=== PATIENT | female | born 1980 | race Caucasian/White ===

== ENCOUNTER 2019-01-15 17:24 | Outpatient (CLI) | payer OTHER, SELFPAY ==
[2019-01-15 17:48] VITALS: BMI 53.8
[2019-01-15 18:50] LABS: Mean Corp Hgb Conc 32.4 g/dL (32-36); Mean Corpuscular Hgb 27.3 pg (27.0-32.0); Mean Corpuscular Volume 84.3 fL (81-99); Mean Platelet Vol. 11.1 fl (6.2-12.0); Platelet Count 277 K/mm3 (150-450); RBC Distribution Width SD 51.8 fl (35.1-43.9); Red Blood Count 4.39 M/mm3 (4.2-5.4); White Blood Count 9.5 K/mm3 (4.4-11.0)
[2019-01-15 18:55] LABS: International Normalized Ratio 1.1; Partial Thromboplast Time 29.8 Seconds (24.1-36.2); Prothrombin Time (Protime)PT. 13.5 SECONDS (11.7-14.9)
[2019-01-15 19:02] LABS: Protein, Urine (Random) 7.6 mg/dL (<11.9); Protein:Creat Ratio 306 mg/g CRE (0-200)
[2019-01-15 19:10] LABS: AST(SGOT) 15 U/L (15-37); Alanine Aminotransfer ALT/SGPT 16 U/L (13-56); Creatinine, Serum 0.54 mg/dL (0.55-1.02); EST Glomerular Filtration Rate 135 mL/min (>60); Est Glom Filt Rate - Afr Amer 163 mL/min (>60); Estimated Creatinine Clearance 123.17 ml/min; Uric Acid 4.9 mg/dL (2.6-6.0)
--- NOTE | 2019-01-15 20:13 | OB.TRI.HP_ITS ---
History of Present Illness Date of Service: 01/15/19 Was patient seen by the physician?: Yes Reason For Visit: PRE-E Date of Service: 01/15/19 Final KYLE: 02/06/19 Final KYLE Source: US <20 weeks Gestational age: 36 Weeks and 6 Days History of Present Illness: 38-year-old female presents from the office today with increased blood pressures. They were in the 140s over 80s to 90s range in the office. She denies any headache or visual changes. She denies any epigastric pain. She is had good movement. She denies any contractions, vaginal bleeding or leaking of fluid. Allergies amoxicillin [Amoxicillin] Allergy (Severe, Verified 11/01/14 00:49) Unknown Quinolones Allergy (Severe, Verified 11/01/14 00:49) Unknown SEASONAL (ENVIRONMENT) Allergy (Mild, Uncoded 11/01/14 00:49) Unknown Laboratory Studies: Laboratory Tests 01/15/19 01/15/19 01/15/19 Range/Units 18:15 18:15 18:15 WBC (4.4-11.0) K/mm3 RBC (4.2-5.4) M/mm3 Hgb (12.0-15.0) g/dL Hct (37-47) % MCV (81-99) fL MCH (27.0-32.0) pg MCHC (32-36) g/dL RDW Std Deviation (35.1-43.9) fl RDW Coeff of Sherlyn (11.6-14.6) % Plt Count (150-450) K/mm3 MPV (6.2-12.0) fl PT 13.5 (11.7-14.9) SECONDS INR 1.1 APTT 29.8 (24.1-36.2) Seconds Creatinine 0.54 L (0.55-1.02) mg/dL Estim Creat Clear Calc 123.17 ml/min Est GFR (MDRD) Af Amer 163 (>60) mL/min Est GFR (MDRD) Non-Af 135 (>60) mL/min Uric Acid 4.9 (2.6-6.0) mg/dL AST 15 (15-37) U/L ALT 16 (13-56) U/L U Random Total Protein 7.6 (<11.9) mg/dL Urine Creatinine 24.80 (NO RANGE EST.) mg/dL Protein/Creatinin Ratio 306 H (0-200) mg/g CRE 01/15/19 Range/Units 18:15 WBC 9.5 (4.4-11.0) K/mm3 RBC 4.39 (4.2-5.4) M/mm3 Hgb 12.0 (12.0-15.0) g/dL Hct 37.0 (37-47) % MCV 84.3 (81-99) fL MCH 27.3 (27.0-32.0) pg MCHC 32.4 (32-36) g/dL RDW Std Deviation 51.8 H (35.1-43.9) fl RDW Coeff of Sherlyn 17.0 H (11.6-14.6) % Plt Count 277 (150-450) K/mm3 MPV 11.1 (6.2-12.0) fl PT (11.7-14.9) SECONDS INR APTT (24.1-36.2) Seconds Creatinine (0.55-1.02) mg/dL Estim Creat Clear Calc ml/min Est GFR (MDRD) Af Amer (>60) mL/min Est GFR (MDRD) Non-Af (>60) mL/min Uric Acid (2.6-6.0) mg/dL AST (15-37) U/L ALT (13-56) U/L U Random Total Protein (<11.9) mg/dL Urine Creatinine (NO RANGE EST.) mg/dL Protein/Creatinin Ratio (0-200) mg/g CRE Physical Exam General: Alert, Cooperative, No apparent distress Abdomen: Soft, Non-Distended, Gravid Extremities:: Deep tendon reflexes - 2+, Other - 2+edema Neurological: Negative for: Clonus NST - FHR Rate Baby A Baseline: normal Variability:: Moderate Accelerations:: 15 x 15 Decelerations:: None NST Reactive:: Yes FHR Category:: Category I Uterine Activity:: qiet Impression/Plan 38-year-old high risk primigravida with morbid obesity and BMI 53 presents with mildly increased blood pressures from the office. First couple of blood pressures were elevated but patient was anxious, also we are using a cuff that does not really fit properly on her arm. Because of the patient's body habitus and shape of her arm, we had difficulty finding an adequate blood pressure cuff. We ended up having to check blood pressures on her wrist. Blood pressures were then in the 130s over 80s range. Labs were all normal. No symptoms of preeclampsia with severe features. Urine protein ratio was minimally elevated at 306. I discussed with the patient risk benefits and alternatives to induction of labor versus expectant management. Patient would like to be discharged home tonight if it is clinically reasonable. At this point, patient can monitor her blood pressures at home and call us if they are persistently elevated. Instructed her to call if systolics are greater than 140 or diastolic s are greater than 90. In addition, she should call if any symptoms of severe preeclampsia. Will obtain a formal 24-hour urine. If this is normal, continue expectant management and follow-up closely. If the 24-hour urine is elevated in the preeclampsia range, I discussed with her I would recommend immediate induction. Patient's questions were answered to her satisfaction, she is comfortable with this plan.
[2019-01-16 21:15] LABS: 24 Hour Urine Protein 293.4 mg/24HR (<150 MG/24HR); 24HR. UA Prot. Total Volume 2425 mL; Urine Protein (24 Hour) 12.1 mg/dL (<11.9)
== END 2019-01-15 20:25 | disposition home or self-care (01) ==
LOC: WPOUT 17:24 → WP 17:46
PROVIDERS: Family Provider Family Medicine Sports Medicine; PCP Family Medicine Sports Medicine; Referring Provider Obstetrics & Gynecology; Visit Provider Obstetrics & Gynecology
DX: O26.893 Other specified pregnancy related conditions, third trimester (principal); R03.0 Elevated blood-pressure reading, without diagnosis of hypertension; O99.213 Obesity complicating pregnancy, third trimester; E66.01 Morbid (severe) obesity due to excess calories; Z3A.36 36 weeks gestation of pregnancy
CPT/HCPCS: 59025; 59050; 82565; 82570; 84156; 84450; 84460; 84550; 85027; 85610; 85730; 99218; G0378

== ENCOUNTER 2019-01-21 09:50 | Inpatient (IN) | payer OTHER, SELFPAY ==
[2019-01-21] VITALS (14 sets, daily range): BP systolic 127–156; BP diastolic 67–95; PULSE 85–105; RESP 16–22; TEMP 36.2–37.2; O2SAT 90–98; BMI 54.1
--- NOTE | 2019-01-21 10:19 | HP.PCM_ITS ---
History and Physical Date of Admission: 01/21/19 Pre-Op History and Physical ? HPI: The patient is a 38 year old female presenting for pre-operative visit. She is scheduled for?, for?suspected LGA fetus, unengaged head at term, unfavorable cervix, gestational hypertension on?01/21/19. ??Procedure discussed along with risks, benefits and complications. ?Other alternatives discussed for management. Consent form signed??Yes.? PAST?MEDICAL?HISTORY PAST MEDICAL HISTORY Diagnosis Date ? Hypothyroid ? ? IBS (irritable bowel syndrome) ? ? Infertility, female ? ? PCOS (polycystic ovarian syndrome) ? ? Pre-diabetes ? ? diet controled ? Testing for genetic disease carrier status ? ? On 01/09/2017 [employer] screen tested 4 conditions and no disease causing mutations were detected. (Fundamental panel,Ia-rlretvmba-bnttpmh hemoglobinopathy with Fragile X Syndrome) ? ? PAST?SURGICAL?HISTORY PAST SURGICAL HISTORY Procedure Laterality Date ? HIP SURGERY HX Bilateral 2013 ? REMOVE TONSILS/ADENOIDS,12+ Y/O ? 2007 ? ? CURRENT?MEDICATIONS Current Outpatient Medications Medication Sig Dispense Refill ? SYNTHROID 75 mcg tablet take 1 tablet by mouth once daily 30 tablet 2 ? ferrous sulfate (IRON ORAL) Take by mouth. ? ? ? PNV Combo No.47-Iron-FA #1-DHA (PNV-DHA) 27 mg iron-1 mg -300 mg cap Take 1 tablet by mouth once daily. 30 capsule 5 ? NESTABS ONE 38-1-225 mg cap ? acetaminophen (TYLENOL) 500 mg tablet Take 500 mg by mouth. ? ? ? BABY ASPIRIN ORAL Take by mouth. ? ? ? No current facility-administered medications for this visit.? ? ALLERGIES:?Amoxicillin; Quinolones; Seasonal Allergies ? PERSONAL HISTORY:? 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 ?Employer: [employer] ??Social Needs ?Financial resource strain: Not on file ?Food insecurity: ?Worry: Not on file ?Inability: Not on file ?Transportation needs: ?Medical: Not on file ?Non-medical: Not on file ??Tobacco Use ?Smoking status: Never Smoker ?Smokeless tobacco: Never Used ??Substance and Sexual Activity ?Alcohol use: Not Currently ?Drug use: Never ?Sexual activity: Yes ?Partners: Male ??Lifestyle ?Physical activity: ?Days per week: Not on file ?Minutes per session: Not on file ?Stress: Not on file ??Relationships ?Social connections: ?Talks on phone: Not on file ?Gets together: Not on file ?Attends hinduism service: Not on file ?Active member of club or organization: Not on file ?Attends meetings of clubs or organizations: Not on file ?Relationship status: Not on file ?Intimate partner violence: ?Fear of current or ex partner: Not on file ?Emotionally abused: Not on file ?Physically abused: Not on file ?Forced sexual activity: Not on file ??Other Topics ?Concerns: ?Not on file ??Social History Narrative ?Not on file ? FAMILY HISTORY:? FAMILY?HISTORY FAMILY HISTORY Problem Relation Age of Onset ? Thyroid Mother ? ? Hypertension Mother ? ? Lipids Mother ? ? Hypertension Brother ? ? REVIEW OF SYMPTOMS: GENERAL: denies fevers or chills ENDOCRINOLOGY: has not been on steroids Cardiology : denies palpitations or chest pain Respiratory: denies SOB or cough Hematology: denies history of prolonged bleeding or easy bruising or VTE Allergy: Denies history of personal or family history of allergy to anesthesia ? ? PHYSICAL EXAMINATION: ? VITALS:?Blood pressure 145/92, weight (!) 316 lb (143.3 kg). ? GENERAL:??The patient is well nourished, well hydrated in no acute distress. ?, The patient is oriented to time, place, and person. NECK:?Supple. No lynphadenopathy, normal thyroid, no thyromegaly. LUNGS:?Clear to auscultation bilaterally. no wheezes, rhonchi or rales HEART:?Regular rate and rhythm, Normal heart sounds and No murmurs or gallops abd- soft, nontender, gravid ? ? IMPRESSION:?37w5 d IUP, gestational hypertension,?unengaged head at term, unfavorable cervix, advanced maternal age, maternal obesity ? PLAN:???The risks/benefits/alternatives and personal involved for the planned? delivery?were reviewed with the patient. Her questions were answered to her satisfaction and she desires to proceed. ?Consent was signed. ?I reviewed with her postop instructions and expectations. this history and physical was completed in my office on 01/20/2019. ?
[2019-01-21] MEDS: Lactated Ringers 1,000 ML 999 ML IV (10:40)
[2019-01-21 11:03] LABS: Absolute Lymphocyte Count 1.87 X10^3/uL (0.83-4.51); Absolute Neutrophil Count 6.1 X10^3/uL (2.0-7.7); Basophil# 0.04 X10^3/uL; Basophil% 0.5 % (0-1); Eosinophil# 0.13 X10^3/uL; Eosinophils% 1.5 % (0-5); Hematocrit 35.6 % (37-47); Hemoglobin 11.5 g/dL (12.0-15.0); Lymphocyte # 1.87 X10^3/ul (4.0); Lymphocyte % 21.3 % (19-41); Mean Corp Hgb Conc 32.3 g/dL (32-36); Mean Corpuscular Hgb 27.3 pg (27.0-32.0); Mean Corpuscular Volume 84.6 fL (81-99); Mean Platelet Vol. 10.9 fl (6.2-12.0); Monocyte# 0.53 X10^3/uL; NRBC Flagged by Analyzer 0 % (0-5); Neutrophil # 6.13 X10^3/uL (2.7-7.7); Neutrophil % 69.9 % (47-70); Platelet Count 240 K/mm3 (150-450); RBC Distribution Width CV 16.8 % (11.6-14.6); RBC Distribution Width SD 51.4 fl (35.1-43.9); Red Blood Count 4.21 M/mm3 (4.2-5.4); White Blood Count 8.8 K/mm3 (4.4-11.0)
[2019-01-21] MEDS: Sodium Citrate/Citric Acid 30 ML UDC PO (11:30)
[2019-01-21] MEDS: Lactated Ringers 1,000 ML 150 ML IV (11:30)
--- NOTE | 2019-01-21 13:15 | PCM.OPRPT ---
Delivery Classification: Scheduled Final KYLE: 02/06/19 Gestational age: 37 Weeks and 5 Days aquaculture farmer: Tania Winn Type of Anesthesia:: Spinal Implants Used: none Date of Procedure: 01/21/19 Pre-Operative Diagnosis: 37 week high risk nulliparrous patient, maternal obesity w/ BMI 54, Unfavorable cervix, high head at time, gestational hypertension, Post-Operative Diagnosis: same Indications: see preop diagnosis Indications for : - - same Description of Procedure: The patient was taken to the operating room. She was prepped and draped in the dorsal supine position with a leftward tilt. A Pfannenstiel skin incision was made approximately 2 cm above the symphysis pubis and carried through to underlying layer fascia with the scalpel. The fascia was incised incised in the midline and extended laterally with the Snell scissors. The fascia was dissected off the rectus muscles with blunt and sharp dissection. The rectus muscles were in the midline and the peritoneum was entered bluntly. The peritoneal incision was stretched and the bladder blade was placed. The uterine incision was made in a low transverse fashion with the scalpel and extended superiorly and inferiorly with blunt dissection. The amniotic membranes were ruptured bluntly and clear amniotic fluid returned. The infant's head was brought to the incision in the flexed position, however I was unable to deliver it with fundal pressure alone. The vacuum was obtained and the vacuum was placed on the scalp and 550 mmHg of pressure was created. I pulled with 3 pulls, 2 pop offs with fundal pressure in the standard fashion. The head delivered without difficulty and the vacuum was removed. The remainder the infant was delivered with gentle fundal pressure and gentle traction in standard fashion. The cord was clamped and cut as the was stimulated. . The was handed off to the waiting nursing staff. A small section of cord was clamped and cut for cord gases. Cord blood was then collected in the standard fashion per the patient request in the cord blood collection kit. Was then handed off. The placenta was delivered with fundal massage and gentle traction in the standard fashion. The uterus was left in the peritoneal cavity and cleared of all clots and debris. The cervix was dilated with a ring forcep. The uterine incision was closed with #1 Vicryl in a running locked fashion. A second layer of the same suture was used in an imbricating fashion. Several [id number] sutures were needed in some bleeding sinuses to obtain hemostasis. The incision was examined and was found to be hemostatic. Nicolasa was placed over the incision and gentle pressure was held for 2 minutes, and then the incision was hemostatic. The rectus muscles were examined and any bleeding was Bovie cauterized. Nicolasa was placed over the rectus muscles, and also in the subcutaneous tissue was closure proceeded. The parietal peritoneum and rectus muscles were closed en bloc with an 0 Vicryl running suture. The surgical teams outer gloves were then changed. The rectus fascia was examined and any bleeding was Bovie cauterized and the rectus fascia was closed with looped #1 PDS suture in a running standard fashion. The subcutaneous tissue was examining and any bleeding was Bovie cauterized. The subcutaneous tissue was reapproximated with 3-0 Vicryl suture in 3 layers. The skin was closed in a subcuticular fashion by the PROFESSIONAL BENEFITS SALES CONSULTANT with me present in the labor and delivery suite. I performed the remainder of the procedure with assistance. All sponge, lap, and needle counts were correct. The patient was taken to her room for recovery in a stable condition. Amniotic Fluid Description: Clear Placenta Disposition: to tissue bank for donation Drain: Pineda to straight drain Fluids Replaced: 1000 Cord Entanglement: None Cord Vessel Description: 3 Vessels Esitmated Blood Loss (ml): 1200 Infant Gender: Male Delayed cord clamping: No Antibiotic Given: Ancef 3 grams IV x1 Complications: None - Admit VTE Documentation VTE Present on Admission: No VTE Mechan Device Prophylaxis: SCD's VTE Pharm Prophylaxis ordered?: Yes
[2019-01-21] MEDS: Oxytocin 30 units/NS 500 ml 30 UNITS/500 ML IV.SOLN 167 UNITS IV (13:35)
--- NOTE | 2019-01-21 16:00 | NURSING ---
Report given to Farheen Jerome RN. She will assume care of patient at this time.
[2019-01-21] MEDS: Lactated Ringers 1,000 ML 100 ML IV (17:14)
[2019-01-21] MEDS: Ketorolac 30 MG/ML Syringe IV (18:11)
[2019-01-21] MEDS: Cefazolin 1 GM/50 ML BAG IV (20:14)
[2019-01-21] MEDS: Senna/Docusate Sodium 1 Tablet PO (23:23)
[2019-01-22] MEDS: Ketorolac 30 MG/ML Syringe IV ×4 (00:28→18:44)
[2019-01-22 00:30] VITALS: PULSE 108; RESP 18; TEMP 37.2
--- NOTE | 2019-01-22 01:07 | NURSING ---
20:00 Incentive spirometer provided to patient. Education given on use
[2019-01-22] MEDS: Lactated Ringers 1,000 ML 100 ML IV (03:38)
[2019-01-22] MEDS: Cefazolin 1 GM/50 ML BAG IV (04:01)
[2019-01-22 04:06] VITALS: BP 152/77; PULSE 100; RESP 20; TEMP 37
--- NOTE | 2019-01-22 04:51 | NURSING ---
New drainage noted on silver mepilex at this assessment. Charge Nurse called to room to assess. New drainage circled and will continue to observe.
[2019-01-22] MEDS: Enoxaparin 40 MG/0.4 ML Syringe SC (06:19)
[2019-01-22] MEDS: Levothyroxine 75 MCG Tablet PO (06:22)
[2019-01-22 06:49] LABS: Hematocrit 29.2 % (37-47); Hemoglobin 9.5 g/dL (12.0-15.0); Mean Corp Hgb Conc 32.5 g/dL (32-36); Mean Corpuscular Hgb 27.5 pg (27.0-32.0); Mean Corpuscular Volume 84.6 fL (81-99); Mean Platelet Vol. 10.8 fl (6.2-12.0); Platelet Count 215 K/mm3 (150-450); RBC Distribution Width SD 51.9 fl (35.1-43.9); Red Blood Count 3.45 M/mm3 (4.2-5.4); White Blood Count 12.2 K/mm3 (4.4-11.0)
--- NOTE | 2019-01-22 07:01 | NURSING ---
Drainage on silver mepilex is unchanged in some areas of the bandage and slightly increased in one area. Charge nurse called to room to assess. Bloody drainage has not covered 2/3 of the dressing and all edges are sealed. Will let Dr Ly determine if it needs changed today
[2019-01-22 08:00] VITALS: BP 134/79; PULSE 104; RESP 18; TEMP 36.8; O2SAT 93
[2019-01-22 12:00] VITALS: BP 128/81; PULSE 106; RESP 18; TEMP 37.3; O2SAT 96
[2019-01-22] MEDS: 0.9% Saline Lock 10 ML Syringe IV ×2 (12:49→18:44)
[2019-01-22] MEDS: Senna/Docusate Sodium 1 Tablet PO ×2 (12:50→21:50)
--- NOTE | 2019-01-22 13:26 | PCM.PN.OB ---
Subjective: Well controlled, average lochia. No nausea vomiting. Denies headache or visual changes - Physical Exam Vitals/I&O's: Vital Signs Temp Pulse Resp BP Pulse Ox 98.2 F 104 H 18 134/79 H 93 01/22/19 08:00 01/22/19 08:00 01/22/19 08:00 01/22/19 08:00 01/22/19 08:00 Oxygen Delivery Method Room Air Weight: 142.995 kg Body Mass Index (BMI) 54.1 Intake and Output for Last 24 Hours 01/20/19 01/21/19 01/22/19 23:59 23:59 23:59 Intake Total 2160.00 / 2160.00 1033.33 / 1033.33 Output Total 400 / 400 2450 / 2450 Balance 1760.00 / 1760.00 -1416.67 / -1416.67 General: Alert, Cooperative, No apparent distress Abdomen: Soft, Non-Distended, Obese, Tender - Mildly Extremities: Edema - 1+ Skin: Incision - Bandage is clean dry and intact Laboratory Results 01/22/19 06:15: WBC 12.2 H, RBC 3.45 L, Hgb 9.5 L, Hct 29.2 L, MCV 84.6, MCH 27.5, MCHC 32.5, RDW Std Deviation 51.9 H, RDW Coeff of Sherlyn 17.0 H, Plt Count 215, MPV 10.8 Current Medications Acetaminophen (Tylenol) 1,000 mg PO Q8H PRN PRN PRN Reason: Pain Score 1-3/10;Temp>99.6F Bisacodyl (Dulcolax) 10 mg RECTAL UD PRN PRN Reason: If no BM Docusate Sodium (Colace) 100 mg PO BID [facility] Last Admin: 01/22/19 11:25 Dose: Not Given Documented by: Enoxaparin Sodium (Lovenox) 40 mg SC DAILY@0600 [facility] Last Admin: 01/22/19 06:19 Dose: 40 mg Documented by: Hydrocortisone (Hytone) 1 applic TOPICAL TID PRN PRN; Protocol PRN Reason: Discomfort Hydromorphone HCl (Dilaudid Inj) 0.5 - 1.5 mg IV Q3H PRN PRN PRN Reason: Pain Score 4-10/10 Stop: 01/22/19 13:58 Naloxone HCl 4 mg/ Dextrose 504 mls @ 0 mls/hr IV .Q0M PRN; Protocol PRN Reason: Respiratory depression Naloxone HCl 4 mg/ Dextrose 504 mls @ 0 mls/hr IV .Q0M PRN; Protocol PRN Reason: To maintain Resp. rate >10 Ketorolac Tromethamine (Toradol) 30 mg IV Q6H [facility] Stop: 01/23/19 12:01 Last Admin: 01/22/19 12:49 Dose: 30 mg Documented by: Levothyroxine Sodium (Synthroid) 75 mcg PO DAILY@0600 [facility] Last Admin: 01/22/19 06:22 Dose: 75 mcg Documented by: Methylergonovine Maleate (Methergine) 0.2 mg IM X1 PRN PRN Reason: Uterine Atony Naloxone HCl (Narcan) 0.02 mg IV Q1M PRN PRN Reason: RR <10 and pt unresponsive Naproxen (Naprosyn) 250 - 500 mg PO Q8H PRN PRN PRN Reason: Pain Score 1-3/10 Ondansetron HCl (Zofran) 4 mg IV Q4H PRN PRN PRN Reason: Nausea Oxycodone HCl (Oxyir) 5 mg PO Q4H PRN PRN PRN Reason: Pain Score 4-10/10 Prochlorperazine Edisylate (Compazine Iv) 10 mg IV Q6H PRN PRN PRN Reason: NAUSEA Senna/Docusate Sodium (Senokot-S, Edna-Colace) 1 tablet PO BID [facility] Last Admin: 01/22/19 12:50 Dose: 1 tablet Documented by: Simethicone (Mylicon) 80 mg PO PCHS PRN PRN Reason: Indigestion/stomach pain Sodium Chloride () 5 - 15 ml IV UD PRN PRN Reason: SALINE FLUSH Last Admin: 01/22/19 12:49 Dose: 10 ml Documented by: Medical Necessity - Tobacco Use Smoking Status: Never smoker Assessment/Plan All Active Problems Irregular menstrual cycle (Acute) Postoperative day #1 status post primary Patient is working on breast-feeding, had some low glucose levels and got glucose gel. Mild acute blood loss anemia appropriate for blood loss during the surgery. Estimated blood loss of approximately 1200 cc during the surger, and based drop in hemoglobin and hematocrit, this is a reasonable estimate. Patient is tolerating this well. Stational hypertension: Patient had some elevated blood pressures. Overall she does not have any symptoms or signs of preeclampsia with severe features. We will continue to monitor. If continues to trend higher, will start on labetalol.
--- NOTE | 2019-01-22 13:39 | NURSING ---
All charting reviewed done by student nurse and it is complete.
[2019-01-22 20:15] VITALS: BP 135/69; PULSE 96; RESP 18; TEMP 36.2; O2SAT 95
[2019-01-23] MEDS: Naproxen 250 MG Tablet PO (00:50)
[2019-01-23 02:38] VITALS: BP 141/77; PULSE 103; RESP 16; TEMP 36.3; O2SAT 97
[2019-01-23] MEDS: Enoxaparin 40 MG/0.4 ML Syringe SC (05:47)
[2019-01-23] MEDS: Levothyroxine 75 MCG Tablet PO (05:55)
--- NOTE | 2019-01-23 09:40 | PN.OBGYN_ITS ---
Subjective: pain well controlled, average lochia. No N/V. Ambulating. Balaji. regular diet. + Flatus, no BM. - Physical Exam Vitals/I&O's: Vital Signs Temp Pulse Resp BP Pulse Ox 97.4 F L 103 H 16 141/77 H 97 01/23/19 02:38 01/23/19 02:38 01/23/19 02:38 01/23/19 02:38 01/23/19 02:38 Oxygen Delivery Method Room Air Weight: 142.995 kg Body Mass Index (BMI) 54.1 Intake and Output for Last 24 Hours 01/21/19 01/22/19 01/23/19 23:59 23:59 23:59 Intake Total 2160.00 / 2160.00 1033.33 / 1033.33 Output Total 400 / 400 3050 / 3050 Balance 1760.00 / 1760.00 -2015.67 / - General: Alert, Cooperative, No apparent distress Abdomen: Soft, Non-Distended, Obese, Tender - mildly Extremities: Edema - 2+ Skin: Incision - bandage is clean, dry and intact Current Medications Acetaminophen (Tylenol) 1,000 mg PO Q8H PRN PRN PRN Reason: Pain Score 1-3/10;Temp>99.6F Bisacodyl (Dulcolax) 10 mg RECTAL UD PRN PRN Reason: If no BM Docusate Sodium (Colace) 100 mg PO BID [facility] Last Admin: 01/22/19 23:41 Dose: Not Given Documented by: Enoxaparin Sodium (Lovenox) 40 mg SC DAILY@0600 [facility] Last Admin: 01/23/19 05:47 Dose: 40 mg Documented by: Hydrocortisone (Hytone) 1 applic TOPICAL TID PRN PRN; Protocol PRN Reason: Discomfort Naloxone HCl 4 mg/ Dextrose 504 mls @ 0 mls/hr IV .Q0M PRN; Protocol PRN Reason: Respiratory depression Naloxone HCl 4 mg/ Dextrose 504 mls @ 0 mls/hr IV .Q0M PRN; Protocol PRN Reason: To maintain Resp. rate >10 Levothyroxine Sodium (Synthroid) 75 mcg PO DAILY@0600 [facility] Last Admin: 01/23/19 05:55 Dose: 75 mcg Documented by: Methylergonovine Maleate (Methergine) 0.2 mg IM X1 PRN PRN Reason: Uterine Atony Naloxone HCl (Narcan) 0.02 mg IV Q1M PRN PRN Reason: RR <10 and pt unresponsive Naproxen (Naprosyn) 250 - 500 mg PO Q8H PRN PRN PRN Reason: Pain Score 1-3/10 Last Admin: 01/23/19 00:50 Dose: 500 mg Documented by: Ondansetron HCl (Zofran) 4 mg IV Q4H PRN PRN PRN Reason: Nausea Oxycodone HCl (Oxyir) 5 mg PO Q4H PRN PRN PRN Reason: Pain Score 4-10/10 Prochlorperazine Edisylate (Compazine Iv) 10 mg IV Q6H PRN PRN PRN Reason: NAUSEA Senna/Docusate Sodium (Senokot-S, Edna-Colace) 1 tablet PO BID [facility] Last Admin: 01/22/19 21:50 Dose: 1 tablet Documented by: Simethicone (Mylicon) 80 mg PO PCHS PRN PRN Reason: Indigestion/stomach pain Sodium Chloride () 5 - 15 ml IV UD PRN PRN Reason: SALINE FLUSH Last Admin: 01/22/19 18:44 Dose: 10 ml Documented by: Medical Necessity - Tobacco Use Smoking Status: Never smoker Assessment/Plan All Active Problems Irregular menstrual cycle (Acute) Postop Day #2 s/p primary c/s is doing well, nursing and getting some supplementation for low blood sugars patient is doing well, routine care likely d/c tomorrow
[2019-01-23 10:25] VITALS: BP 137/76; PULSE 98; RESP 16; TEMP 36.4; O2SAT 96
[2019-01-23] MEDS: Senna/Docusate Sodium 1 Tablet PO ×2 (10:25→21:51)
[2019-01-23 14:35] VITALS: BP 125/64; PULSE 107; TEMP 36.6; O2SAT 97
[2019-01-23 19:37] VITALS: BP 142/73; PULSE 99; RESP 16; TEMP 36.8; O2SAT 99
[2019-01-24 03:00] VITALS: BP 143/89; PULSE 108; RESP 18; TEMP 36.4
[2019-01-24] MEDS: Levothyroxine 75 MCG Tablet PO (06:06)
[2019-01-24] MEDS: Enoxaparin 40 MG/0.4 ML Syringe SC (06:07)
[2019-01-24 08:00] VITALS: BP 121/93; PULSE 99; RESP 16; TEMP 36.3
--- NOTE | 2019-01-24 12:29 | PCM.PN.OB ---
Subjective: Pain well controlled. Average lochia. Has had a bowel movement. Tolerating regular diet. Has not been taking any medications for pain. Denies headache or visual changes. No epigastric pain. - Physical Exam Vitals/I&O's: Vital Signs Temp Pulse Resp BP Pulse Ox 97.4 F L 99 16 121/93 H 99 01/24/19 08:00 01/24/19 08:00 01/24/19 08:00 01/24/19 08:00 01/23/19 19:37 Oxygen Delivery Method Room Air Weight: 142.995 kg Body Mass Index (BMI) 54.1 Intake and Output for Last 24 Hours 01/22/19 01/23/19 01/24/19 23:59 23:59 23:59 Intake Total 1033.33 / 1033.33 Output Total 3050 / 3050 Balance -2015.67 / - General: Alert, Cooperative, No apparent distress Abdomen: Soft, Non-Distended, Tender - Mildly Extremities: Edema - 2+ Skin: Incision - Bandage was peeling off, removed, incision is clean and dry Current Medications Acetaminophen (Tylenol) 1,000 mg PO Q8H PRN PRN PRN Reason: Pain Score 1-3/10;Temp>99.6F Bisacodyl (Dulcolax) 10 mg RECTAL UD PRN PRN Reason: If no BM Docusate Sodium (Colace) 100 mg PO BID [facility] Last Admin: 01/24/19 04:12 Dose: Not Given Documented by: Enoxaparin Sodium (Lovenox) 40 mg SC DAILY@0600 [facility] Last Admin: 01/24/19 06:07 Dose: 40 mg Documented by: Hydrocortisone (Hytone) 1 applic TOPICAL TID PRN PRN; Protocol PRN Reason: Discomfort Naloxone HCl 4 mg/ Dextrose 504 mls @ 0 mls/hr IV .Q0M PRN; Protocol PRN Reason: Respiratory depression Naloxone HCl 4 mg/ Dextrose 504 mls @ 0 mls/hr IV .Q0M PRN; Protocol PRN Reason: To maintain Resp. rate >10 Levothyroxine Sodium (Synthroid) 75 mcg PO DAILY@0600 [facility] Last Admin: 01/24/19 06:06 Dose: 75 mcg Documented by: Methylergonovine Maleate (Methergine) 0.2 mg IM X1 PRN PRN Reason: Uterine Atony Naloxone HCl (Narcan) 0.02 mg IV Q1M PRN PRN Reason: RR <10 and pt unresponsive Naproxen (Naprosyn) 250 - 500 mg PO Q8H PRN PRN PRN Reason: Pain Score 1-3/10 Last Admin: 01/23/19 00:50 Dose: 500 mg Documented by: Ondansetron HCl (Zofran) 4 mg IV Q4H PRN PRN PRN Reason: Nausea Oxycodone HCl (Oxyir) 5 mg PO Q4H PRN PRN PRN Reason: Pain Score 4-10/10 Prochlorperazine Edisylate (Compazine Iv) 10 mg IV Q6H PRN PRN PRN Reason: NAUSEA Senna/Docusate Sodium (Senokot-S, Edna-Colace) 1 tablet PO BID [facility] Last Admin: 01/23/19 21:51 Dose: 1 tablet Documented by: Simethicone (Mylicon) 80 mg PO PCHS PRN PRN Reason: Indigestion/stomach pain Sodium Chloride () 5 - 15 ml IV UD PRN PRN Reason: SALINE FLUSH Last Admin: 01/22/19 18:44 Dose: 10 ml Documented by: Medical Necessity - Tobacco Use Smoking Status: Never smoker Assessment/Plan All Active Problems Irregular menstrual cycle (Acute) POD#3 s/p primary c/s, doing well routine care ready for d/c wound care reviewed f/u in my office in 1 weeks or prn concerns or symptoms of preeclampsia
--- NOTE | 2019-01-24 12:35 | DCINST_ITS ---
Discharge Diet: No Restrictions Discharge Activity: Return to Normal Activity, May Not Drive - for 2 weeks, May not drive while taking narcotic pain medications., May Shower, May Take a Tub Bath - in 7 days. May resume sexual activity in: 4-6 weeks Lifting Restrictions: 20 pounds Additional Activity Instructions:: Nothing in the vagina for 4-6 weeks. You may return to work/school in 6 weeks. Call your doctor if your incision/area has: Continuous Slow Oozing, Sudden Increased Bleeding, Increased Pain/ Swelling, Increased Redness, Foul Smelling Discharge Call your doctor if you observe: Fever of 101 or Higher, Using more than one pad per hour - for 2 hours Suture Line Care: Avoid Pulling/Pushing, Avoid Pinching/Bending Cleanse incision/area with: Keep Dressing Clean & Dry Additional Instructions: If you experience any of the following, contact your healthcare provider. * Bleeding that soaks a pad every hour for 2 hours * Fever 100.4 or higher * Unrelieved incision or abdominal pain * Swelling, redness, discharge or bleeding from your incision or episiotomy site * Your incision begins to separate * Problems urinating (including inability to urinate or burning while urinating). * Visual changes * Severe headache * Flu-like symptoms * Pain or redness in one of both of your breasts * Pain, warmth, tenderness or swelling in your legs, especially the calf area * Frequent nausea and vomiting * Symptoms of depression or anxiety If you experience any of the following, call 911 or go to the nearest Emergency Room. * Chest pain * Problems breathing * Seizure activity * Partial or complete paralysis of a body part, slurred speech, weakness or drooping of the face, or a sudden inability to walk or hold your balance Allergies/Adverse Reactions: Allergies amoxicillin [Amoxicillin] Allergy (Severe, Verified 01/21/19 10:03) Unknown Quinolones Allergy (Severe, Verified 01/21/19 10:03) Unknown SEASONAL (ENVIRONMENT) Allergy (Mild, Uncoded 01/21/19 10:03) Unknown Medications to take at Discharge Levothyroxine Sodium [Synthroid] 75 mcg PO DAILY 01/15/19 Vits [Prenatabs FA ] 1 tab PO DAILY 01/15/19 Iron 65 mg PO DAILY 01/21/19 Follow-Up: Call to make an appointment with your doctor for an incision check in 1-2 weeks. You will also need a 6 week post- follow up appointment. Test results from this visit will be discussed in further detail at your follow- up appointment, if applicable. Please Follow Up With: Ernestine Ly MD - Call to make an appointment for an incision check in 1-2 [phone] When: You will need a post check in 6 weeks. Primary Care Physician: Candida Rachel MD [Primary Care Provider] -
--- NOTE | 2019-01-24 12:35 | PCM.DC.SUM ---
Discharge Date and Diagnosis Date of Admission: 01/21/19 Date of Discharge: 01/24/19 Hospital Course and Treatment Operations: - - Lesli low transverse section via Pfannenstiel skin incision Procedures: None Summary of Care Provided: The patient is a 38 year old nulliparous female was admitted at 37 and 5/7 weeks gestation with estimated weight greater than 4000 g, unfavorable cervix, unengaged head at term, morbid obesity with BMI of 54, and gestational hypertension. I discussed with the patient the risk benefits and alternatives to induction of labor with an unfavorable cervix, versus a primary section and she elected for the section. This was performed without difficulty. By postoperative day #3 she was ambulating, urinating and tolerating regular diet without difficulty. She had mild acute blood loss anemia appropriate for blood loss during the surgery. She was discharged home with out any prescriptions for pain medications as she was not requiring any in the hospital. She is to continue her vitamins and will use [id number] pain medications as needed. Wound instructions were reviewed. Follow-up in my office in 1 week for blood pressure check or as needed for symptoms of preeclampsia. [] - Physical Exam Vitals/I&O's: Vital Signs Temp Pulse Resp BP Pulse Ox 97.4 F L 99 16 121/93 H 99 01/24/19 08:00 01/24/19 08:00 01/24/19 08:00 01/24/19 08:00 01/23/19 19:37 Oxygen Delivery Method Room Air Weight: 142.995 kg Body Mass Index (BMI) 54.1 Intake and Output for Last 24 Hours 01/22/19 01/23/19 01/24/19 23:59 23:59 23:59 Intake Total 1033.33 / 1033.33 Output Total 3050 / 3050 Balance -2016.67 / - Current Medications Acetaminophen (Tylenol) 1,000 mg PO Q8H PRN PRN PRN Reason: Pain Score 1-3/10;Temp>99.6F Bisacodyl (Dulcolax) 10 mg RECTAL UD PRN PRN Reason: If no BM Docusate Sodium (Colace) 100 mg PO BID [facility] Last Admin: 01/24/19 04:12 Dose: Not Given Documented by: Enoxaparin Sodium (Lovenox) 40 mg SC DAILY@0600 [facility] Last Admin: 01/24/19 06:07 Dose: 40 mg Documented by: Hydrocortisone (Hytone) 1 applic TOPICAL TID PRN PRN; Protocol PRN Reason: Discomfort Naloxone HCl 4 mg/ Dextrose 504 mls @ 0 mls/hr IV .Q0M PRN; Protocol PRN Reason: Respiratory depression Naloxone HCl 4 mg/ Dextrose 504 mls @ 0 mls/hr IV .Q0M PRN; Protocol PRN Reason: To maintain Resp. rate >10 Levothyroxine Sodium (Synthroid) 75 mcg PO DAILY@0600 [facility] Last Admin: 01/24/19 06:06 Dose: 75 mcg Documented by: Methylergonovine Maleate (Methergine) 0.2 mg IM X1 PRN PRN Reason: Uterine Atony Naloxone HCl (Narcan) 0.02 mg IV Q1M PRN PRN Reason: RR <10 and pt unresponsive Naproxen (Naprosyn) 250 - 500 mg PO Q8H PRN PRN PRN Reason: Pain Score 1-3/10 Last Admin: 01/23/19 00:50 Dose: 500 mg Documented by: Ondansetron HCl (Zofran) 4 mg IV Q4H PRN PRN PRN Reason: Nausea Oxycodone HCl (Oxyir) 5 mg PO Q4H PRN PRN PRN Reason: Pain Score 4-10/10 Prochlorperazine Edisylate (Compazine Iv) 10 mg IV Q6H PRN PRN PRN Reason: NAUSEA Senna/Docusate Sodium (Senokot-S, Edna-Colace) 1 tablet PO BID [facility] Last Admin: 01/23/19 21:51 Dose: 1 tablet Documented by: Simethicone (Mylicon) 80 mg PO PCHS PRN PRN Reason: Indigestion/stomach pain Sodium Chloride () 5 - 15 ml IV UD PRN PRN Reason: SALINE FLUSH Last Admin: 01/22/19 18:44 Dose: 10 ml Documented by: Discharge Diet: No Restrictions Discharge Activity: Return to Normal Activity, May Not Drive - for 2 weeks, May not drive while taking narcotic pain medications., May Shower, May Take a Tub Bath - in 7 days. May resume sexual activity in: 4-6 weeks Additional Activity Instructions:: Nothing in the vagina for 4-6 weeks. You may return to work/school in 6 weeks. Call your doctor if your incision/area has: Continuous Slow Oozing, Sudden Increased Bleeding, Increased Pain/ Swelling, Increased Redness, Foul Smelling Discharge Call your doctor if you observe: Fever of 101 or Higher, Using more than one pad per hour - for 2 hours Suture Line Care: Avoid Pulling/Pushing, Avoid Pinching/Bending Cleanse incision/area with: Keep Dressing Clean & Dry Home Medications: Medications to take at Discharge Levothyroxine Sodium [Synthroid] 75 mcg PO DAILY 01/15/19 Vits [Prenatabs FA ] 1 tab PO DAILY 01/15/19 Iron 65 mg PO DAILY 01/21/19 Primary Care Physician: Candida Rachel MD [Primary Care Provider] - Please Follow Up With: Ernestine Ly MD - Call to make an appointment for an incision check in 1-2 [phone] When: You will need a post check in 6 weeks. Medical Necessity - Tobacco Use Smoking Status: Never smoker Meaningful Use Info Meaningful Use Diagnoses (Choose all that apply): None applicable
[2019-01-24 14:00] VITALS: BP 121/93; PULSE 97; RESP 16; TEMP 36.4
== END 2019-01-24 17:20 | disposition home or self-care (01) | DRG 787 ==
PROVIDERS: Admitting Provider Obstetrics & Gynecology; Family Provider Family Medicine Sports Medicine; PCP Family Medicine Sports Medicine; Referring Provider Obstetrics & Gynecology; Visit Provider Obstetrics & Gynecology
PROC: 10D00Z1 Extraction of Products of Conception, Low, Open Approach (ICD-10-PCS; CPT 59514; principal; 2019-01-21 11:45)
DX: O13.4 Gestational [pregnancy-induced] hypertension without significant proteinuria, complicating childbirth (principal); D62 Acute posthemorrhagic anemia; O99.284 Endocrine, nutritional and metabolic diseases complicating childbirth; E03.9 Hypothyroidism, unspecified; O99.214 Obesity complicating childbirth; E66.01 Morbid (severe) obesity due to excess calories; Z3A.37 37 weeks gestation of pregnancy; Z37.0 Single live birth; O90.81 Anemia of the puerperium
CPT/HCPCS: 85025; 85027; 86850; 86900; 86901; 99218; J7120; A4216; G0378; J2405

== ENCOUNTER 2019-01-27 18:10 | Inpatient (IN) | payer OTHER, SELFPAY ==
[2019-01-21 10:00] VITALS: BMI 54.1
[2019-01-27] VITALS (30 sets, daily range): BP systolic 136–180; BP diastolic 64–90; PULSE 77–88; RESP 13–16; TEMP 36.4–37.2; O2SAT 94–100; BMI 51.0
[2019-01-27] MEDS: Magnesium Sulfate 4gm/100mL 4 GM/100 ML IV.SOLN. IV (18:45)
[2019-01-27 18:48] LABS: Absolute Lymphocyte Count 2.21 X10^3/uL (0.83-4.51); Absolute Neutrophil Count 5.2 X10^3/uL (2.0-7.7); Basophil# 0.05 X10^3/uL; Basophil% 0.6 % (0-1); Eosinophil# 0.29 X10^3/uL; Eosinophils% 3.4 % (0-5); Hematocrit 32.3 % (37-47); Hemoglobin 10.3 g/dL (12.0-15.0); Lymphocyte # 2.21 X10^3/ul (4.0); Lymphocyte % 26.2 % (19-41); Mean Corp Hgb Conc 31.9 g/dL (32-36); Mean Corpuscular Hgb 27.4 pg (27.0-32.0); Mean Corpuscular Volume 85.9 fL (81-99); Monocyte# 0.59 X10^3/uL; NRBC Flagged by Analyzer 0 % (0-5); Neutrophil # 5.15 X10^3/uL (2.7-7.7); Platelet Count 385 K/mm3 (150-450); RBC Distribution Width SD 50.5 fl (35.1-43.9); Red Blood Count 3.76 M/mm3 (4.2-5.4); White Blood Count 8.4 K/mm3 (4.4-11.0)
[2019-01-27] MEDS: Magnesium Sulfate 4gm/100mL 2 GM/50 ML IV.SOLN. IV (19:04)
[2019-01-27 19:05] LABS: ALB/GLOB Ratio 0.6 RATIO (0.9-2.4); AST(SGOT) 23 U/L (15-37); Alanine Aminotransfer ALT/SGPT 35 U/L (13-56); Albumin, Serum 2.6 g/dL (3.2-5.0); Alkaline Phosphatase 78 U/L (45-117); Anion Gap 9 (5-15); BUN 7 mg/dL (7-18); BUN/Creat Ratio 10.6 RATIO (10-20); Calcium,Total 9.1 mg/dL (8.5-10.1); Chloride 107 mmol/L (98-107); Creatinine, Serum 0.66 mg/dL (0.55-1.02); EST Glomerular Filtration Rate 107 mL/min (>60); Est Glom Filt Rate - Afr Amer 129 mL/min (>60); Estimated Creatinine Clearance 100.78 ml/min; Globulin 4.1 g/dL (2.2-4.2); Glucose 78 mg/dL (74-106); Potassium 3.6 mmol/L (3.5-5.1); Protein, Total 6.7 g/dL (6.4-8.2); Sodium Level 142 mmol/L (136-145)
--- NOTE | 2019-01-27 19:15 | NURSING ---
bedside report received from alison DUMAS. this RN to assume care of pt at this time.
[2019-01-27] MEDS: Labetalol 100 MG Tablet PO (19:18)
[2019-01-27] MEDS: Magnesium Sulfate 20 GM/500 ML BAG IV (19:18)
--- NOTE | 2019-01-27 20:45 | NURSING ---
BP being obtained every 10 min at this time under the recovery vital signs category on the HTN emergency worksheet. BP has currently been WNL.
--- NOTE | 2019-01-27 21:26 | NURSING ---
pt left side. successful latch obtained.
[2019-01-28] VITALS (45 sets, daily range): BP systolic 106–179; BP diastolic 55–84; PULSE 62–96; RESP 12–22; TEMP 36.3–37.2; O2SAT 92–100
[2019-01-28] MEDS: Magnesium Sulfate 20 GM/500 ML BAG IV ×2 (05:35→15:23)
--- NOTE | 2019-01-28 06:05 | NURSING ---
charge master specialist aware of second dose of IV labetolol given. dr cabrera called to update on pt condition. pt reporting headache with rating of 5/10. pt asymptomatic otherwise with no visual disturbances, clonus, hyperreflexes, etc. dr cabrera gave no verbal order for pain medication at this time. dr cabrera was made aware that pt BPs have been elevated >160 systolic throughout the night and two doses of IV labetolol 20 mg were given at 0033 and 0553. pt BP decreased to normal range after IV medication. dr cabrera gave verbal order to increase PO maintenance dose of labetolol from 100 mg to 200 mg and give this AM. this RN to add telephone verbal order and give labetolol as ordered. will continue to monitor per protocal. charge master specialist made aware of this plan of care change.
--- NOTE | 2019-01-28 07:22 | NURSING ---
bedside report given to lio DUMAS and doreen. two RNs to assume care of pt at this time.
[2019-01-28] MEDS: Labetalol 200 MG Tablet PO ×2 (07:25→19:00)
--- NOTE | 2019-01-28 08:12 | PCM.HP.BLA ---
Problem List (1) Pre-eclampsia, severe, condition Status: Acute History and Physical Date of Admission: 01/27/19 38-year-old G1, P0 female status post primary section on 01/21/2019 for gestational hypertension, morbid obesity, unfavorable cervix patient presented back to [facility] on 01/27/19 with elevated blood pressures in the severe range she was admitted for magnesium therapy and hypertensive management. Reports intermittent mild headache with some visual changes at time of admission.
--- NOTE | 2019-01-28 08:17 | PCM.HP.OB ---
- Problem List (1) Pre-eclampsia, severe, condition Status: Acute History Date of Admission: 01/27/19 Final KYLE Source: US <20 weeks History of this : 38-year-old G1, P0 female status post primary section on 01/21/2019 for gestational hypertension, morbid obesity, unfavorable cervix patient presented back to [facility] on 01/27/19 with elevated blood pressures in the severe range she was admitted for magnesium therapy and hypertensive management. Reports intermittent mild headache with some visual changes at time of admission. Medical History: Medical History (Last Updated 01/28/19 @ 08:18 by Trudy Tinsley MD) Gestational hypertension O13.9 Hypothyroid E03.9 PCOS (polycystic ovarian syndrome) E28.2 Allergies amoxicillin [Amoxicillin] Allergy (Severe, Verified 01/27/19 17:16) Unknown Quinolones Allergy (Severe, Verified 01/27/19 17:16) Unknown SEASONAL (ENVIRONMENT) Allergy (Mild, Uncoded 01/27/19 17:16) Unknown Home Medications: Home Medications Levothyroxine Sodium [Synthroid] 75 mcg PO DAILY 01/15/19 Vits [Prenatabs FA ] 1 tab PO DAILY 01/15/19 Iron 65 mg PO DAILY 01/21/19 Smoking Status: Never smoker Alcohol: None History Past Pregnancies: Past Pregnancies Delivery Date Name GA/Weeks Outcome Route Weight Gender Labor Length Anesthesia Delivery Location Provider FOB Review of Systems Constitutional: Denies: Anorexia Eyes: Denies: Blurred vision, Vision Change HEENT: Reports: Head Aches - mild intermittent Cardiovascular: Denies: Chest Pain, Chest Pressure, Chest Tightness Respiratory: Denies: Cough, Shortness of Breath Gastrointestinal: Denies: Abdominal Pain Physical Exam Vitals: Vital Signs Temp Pulse Resp BP Pulse Ox 98.3 F 73 16 147/77 H 97 01/28/19 07:34 01/28/19 07:34 01/28/19 07:34 01/28/19 07:34 01/28/19 07:34 General: Alert, Oriented x3 Lungs: Clear to auscultation Abdomen: Soft, Non Tender, Obese, - - NO RUQ pain Neurological: Cranial nerves II-XII grossly intact Assessment/Plan All Active Problems Pre-eclampsia, severe, condition (Acute) Irregular menstrual cycle (Acute) This is a 38 year-old- with post preeclampsia- with features - headache and severe range pressures 1) continue Magnesium sulfate x 24hr 2) labetalol 200mg BID 3) labs reviewed 4) will monitor until 01/29/19- medication adjustment as needed
--- NOTE | 2019-01-28 08:22 | PCM.PN.OB ---
Patient Problems: Active and Suspected Problems (Last Updated 01/28/19 @ 08:18 by Trudy Tinsley MD) Pre-eclampsia, severe, condition (Acute) Subjective: Seen at bedside, doing well. Patient reports mild intermittent headache. Denies any visual changes, epigastric or right upper quadrant pain. Bleeding is mild. - Physical Exam Vitals/I&O's: Vital Signs Temp Pulse Resp BP Pulse Ox 98.3 F 73 16 147/77 H 97 01/28/19 07:34 01/28/19 07:34 01/28/19 07:34 01/28/19 07:34 01/28/19 07:34 Oxygen Delivery Method Room Air Weight: 134.717 kg Body Mass Index (BMI) 51.0 Intake and Output for Last 24 Hours 01/26/19 01/27/19 01/28/19 23:59 23:59 23:59 Intake Total 469.15 / 469.15 920.00 / 920.00 Output Total 800 / 800 750 / 750 Balance -330.85 / -330.85 170.00 / 170.00 General: Alert, Oriented x3 Lungs: Clear to auscultation Abdomen: Soft, Non Tender, Obese Extremities: No Calf Tenderness Neurological: Cranial nerves II-XII grossly intact Psych/Mental Status: Normal Affect Laboratory Results 01/27/19 18:37: WBC 8.4, RBC 3.76 L, Hgb 10.3 L, Hct 32.3 L, MCV 85.9, MCH 27.4, MCHC 31.9 L, RDW Std Deviation 50.5 H, RDW Coeff of Sherlyn 16.0 H, Plt Count 385, MPV 10.0, Immature Gran % (Auto) 1.800 H, Neut % (Auto) 61.0, Lymph % (Auto) 26.2, [place] % (Auto) 7.0, Eos % (Auto) 3.4, Baso % (Auto) 0.6, Absolute Neuts (auto) 5.2, Absolute Lymphs (auto) 2.21, Nucleated RBC % 0 01/27/19 18:37: Sodium 142, Potassium 3.6, Chloride 107, Carbon Dioxide 26.0, Anion Gap 9, BUN 7, Creatinine 0.66, Estim Creat Clear Calc 100.78, Est GFR (MDRD) Af Amer 129, Est GFR (MDRD) Non-Af 107, BUN/Creatinine Ratio 10.6, Glucose 78, Calcium 9.1, Total Bilirubin 0.30, AST 23, ALT 35, Alkaline Phosphatase 78, Total Protein 6.7, Albumin 2.6 L, Globulin 4.1, Albumin/Globulin Ratio 0.6 L Current Medications Acetaminophen (Tylenol) 1,000 mg PO Q8H PRN PRN PRN Reason: Pain Score 1-10/10 Calcium Gluconate () 1 gm IV X1 PRN PRN Reason: MAGNESIUM TOXICITY Magnesium Sulfate (20gm/500ml) 20 gm in 500 mls @ 50 mls/hr IV .Q10H CAROL; Protocol Last Infusion: 01/28/19 07:34 Dose: 2 gm/hr, 50 mls/hr Documented by: Labetalol HCl (Trandate) 20 mg IV Q10M PRN PRN PRN Reason: ELEVATED BP Last Admin: 01/28/19 05:53 Dose: 20 mg Documented by: Labetalol HCl (Trandate) 200 mg PO BID CAROL Last Admin: 01/28/19 07:25 Dose: 200 mg Documented by: Midazolam HCl (Versed) 2 mg IV Q5M PRN PRN Reason: SEIZURE Ondansetron HCl (Zofran) 4 mg IV Q4H PRN PRN PRN Reason: NAUSEA Prochlorperazine Edisylate (Compazine Iv) 10 mg IV Q6H PRN PRN PRN Reason: NAUSEA Medical Necessity - Tobacco Use Smoking Status: Never smoker Assessment/Plan All Active Problems (Last Updated 01/28/19 @ 08:18 by Trudy Tinsley MD) Irregular menstrual cycle (Acute) Pre-eclampsia, severe, condition (Acute) Hospital day #1- preeclampsia with severe features 1) continue magnesium x 24 hrs 2) labetalol 200mg BID 3) monitor symptoms and VS- consider med adjustment if IV push required again 4) possible dc home tomorrow if BP stable when off magnesium 5) Labs reviewed 6) regular diet, fluid restrictions reviewed
[2019-01-28] MEDS: Ondansetron 4 MG/2 ML Vial IV (08:41)
[2019-01-28] MEDS: Acetaminophen 500 MG Tablet 1000 MG PO (09:33)
--- NOTE | 2019-01-28 11:15 | NURSING ---
recovery vitals completed from 552 labetolol dosage, pt.'s blood pressure remains controlled, vital signs in qs system
--- NOTE | 2019-01-28 12:43 | NURSING ---
consult done on mother and baby. Mother's milk appears to be in and her alternate breast was actively leaking while nursing the baby. Suggested getting a [place]. baby sucks and swallows well, 7 days old today was 7#[address] was 7#4.8 oz pre feed 7#5.5post feeding, showing a 20cc transfer. Ecplained to mother the baby is peeing and pooping appropriately but could benefit from getting additional breastmilk post feedings so enhance weight gain and ensure that baby is taking in enough at breast. Mother going to bring in a dr brown bottle from home, pump given and explained and mother plans to pump 4-5 x per day and offer baby an additional 1oz after feedings, mother states she could easily get 1oz pumping post feedings.
--- NOTE | 2019-01-28 18:08 | NURSING ---
serosanginous drainage noticed from incision by RN, second RN double checked incision confirmed small drainage with no visible wound separation, discussed with charge nurse, will continue to monitor incision for any further change in drainage or separation, will discuss with patient and patients to monitor size and condition of wound and contact for any changes
--- NOTE | 2019-01-28 20:30 | NURSING ---
2023 notified of BP WNL at 2000 assessment and neg assessment. Plan to continue PO labetalol 200mg BID. Call if BP rises through the night. Also, notified physician of small to moderate amount of serosangineous watery drainage from incicsion. Orders to keep gauze on incision and provider will assess in AM.
--- NOTE | 2019-01-28 22:36 | NURSING ---
Pt showered and had concern about surgical incision, stated When dried incision with towel there was drainage on the towel along the entire incision line. Site reddened, no active drainage noted upon assessment, placed surgical gauze pad on site, dime size amount of drainage noted on gauze. Gauze kept in place and will continue to monitor.
[2019-01-29] VITALS (7 sets, daily range): BP systolic 134–155; BP diastolic 67–72; PULSE 67–74; RESP 18–20; TEMP 36.6–37.4; O2SAT 97–98
--- NOTE | 2019-01-29 01:10 | NURSING ---
0052 updated on gauze pad needing changed on incision. Notified gauze was completely covered, but not saturated. Plan to continue placing gauze and will assess in AM.
--- NOTE | 2019-01-29 08:14 | PCM.PN.OB ---
Patient Problems: Active and Suspected Problems (Last Updated 01/28/19 @ 08:18 by Trudy Tinsley MD) Pre-eclampsia, severe, condition (Acute) Subjective: Pt doing well. No BRUCE, vision changes, RUQ pain, nausea, vomiting. Pain controlled. Ambulating and voiding without difficulty. Pumping and . - Physical Exam Vitals/I&O's: Vital Signs Temp Pulse Resp BP Pulse Ox 99.0 F 72 18 145/69 H 97 01/29/19 04:34 01/29/19 04:34 01/29/19 04:34 01/29/19 04:34 01/29/19 04:34 Oxygen Delivery Method Room Air Weight: 297 lb Body Mass Index (BMI) 51.0 Intake and Output for Last 24 Hours 01/27/19 01/28/19 01/29/19 23:59 23:59 23:59 Intake Total 469.15 / 469.15 2741.67 / 2741.67 Output Total 800 / 800 1500 / 1500 Balance -330.85 / -330.85 1241.67 / 1241.67 General: Alert, No apparent distress HEENT: Atraumatic Abdomen: Soft, - - Obese, incision intact, scant SS drainage, dependent edema around incision, no sign of infection Extremities: No Calf Tenderness Skin: No rashes Neurological: Neuro grossly intact Psych/Mental Status: Normal Affect, Appropriate Current Medications Acetaminophen (Tylenol) 1,000 mg PO Q8H PRN PRN PRN Reason: Pain Score 1-10/10 Last Admin: 01/28/19 09:33 Dose: 1,000 mg Documented by: Calcium Gluconate () 1 gm IV X1 PRN PRN Reason: MAGNESIUM TOXICITY Labetalol HCl (Trandate) 20 mg IV Q10M PRN PRN PRN Reason: ELEVATED BP Last Admin: 01/28/19 05:53 Dose: 20 mg Documented by: Labetalol HCl (Trandate) 200 mg PO BID CAROL Last Admin: 01/28/19 19:00 Dose: 200 mg Documented by: Levothyroxine Sodium (Synthroid) 75 mcg PO DAILY@0600 [facility] Midazolam HCl (Versed) 2 mg IV Q5M PRN PRN Reason: SEIZURE Ondansetron HCl (Zofran) 4 mg IV Q4H PRN PRN PRN Reason: NAUSEA Last Admin: 01/28/19 08:41 Dose: 4 mg Documented by: Prochlorperazine Edisylate (Compazine Iv) 10 mg IV Q6H PRN PRN PRN Reason: NAUSEA Medical Necessity - Tobacco Use Smoking Status: Never smoker Assessment/Plan All Active Problems (Last Updated 01/28/19 @ 08:18 by Trudy Tinsley MD) Irregular menstrual cycle (Acute) Pre-eclampsia, severe, condition (Acute) - Last severe range BP at 1830 on 01/28. BP's now mild range. Discussed increasing dose of Labetalol with pt given that she is now off of magnesium, and will be ambulating more but she does not want to increase the BP medication at this time as she is concerned about hypotension. Will check BP's around noon today and if they are still elevated, she is okay increasing medication at that time - No symptoms of pre-e this morning - Dispo: If BP's are controlled, d/c home later this afternoon with follow up on Sunday in the office for an incision check and BP check
--- NOTE | 2019-01-29 08:19 | DCINST_ITS ---
- Discharge Diagnoses Current Active Problems: Current Active and Chronic Problems (Last Updated 01/28/19 @ 08:18 by Trudy Tinsley MD) Pre-eclampsia, severe, condition (Acute) You will use the following diet at home:: No restrictions Your food should be the consistency of: Regular Discharge Activity: May not drive while taking narcotic pain medications., May Shower, May Take a Tub Bath May resume sexual activity in: 6 weeks Weight Bearing Status: Weight bearing as tolerated Lifting Restrictions: No lifting greater than 20 pounds Call your doctor if your incision/area has: Sudden Increased Bleeding, Increased Pain/ Swelling, Increased Redness, Foul Smelling Discharge, Swelling at the incision site Call your doctor if you observe: Fever of 101 or Higher, Inability to urinate, Inability to have a bowel movement, Using more than one pad per hour, Shortness of breath, Dizziness, Fainting spells, Swelling in the ankles, Chest pain, Increased palpitations (irregular heartbeat), Calf discomfort, Uncontrolled pain Suture Line Care: Avoid Pulling/Pushing, Avoid Pinching/Bending Cleanse incision/area with: Soap & Water Allergies/Adverse Reactions: Allergies amoxicillin [Amoxicillin] Allergy (Severe, Verified 01/27/19 17:16) Unknown Quinolones Allergy (Severe, Verified 01/27/19 17:16) Unknown SEASONAL (ENVIRONMENT) Allergy (Mild, Uncoded 01/27/19 17:16) Unknown Medications to take at Discharge Levothyroxine Sodium [Synthroid] 75 mcg PO DAILY 01/15/19 Vits [Prenatabs FA ] 1 tab PO DAILY 01/15/19 Iron 65 mg PO DAILY 01/21/19 Primary Care Physician: Candida Rachel MD [Primary Care Provider] - Test Results: Test results from this visit will be discussed in further detail at your follow- up appointment, if applicable. Please Follow Up With: Ernestine Ly MD When: This week for incision check and blood pressure check Proposed Discharge Date: 01/29/19
[2019-01-29] MEDS: Levothyroxine 75 MCG Tablet PO (08:47)
--- NOTE | 2019-01-29 10:30 | NURSING ---
iblclc round. Mother feeling very discouraged because she was able to pump 2 oz yesterday and today could only pump A very small amount. Tearful and worried about how will she know that the baby is in fact getting enough milk and how much formula to use. Discussed the benefits of even small amounts of breastmilk and time at the breast is very beneficial. Explained normal feeding amounts and encouraged the mother to follow the baby feeding cues if he appears he is hungry after going to breast to feed him additional after nursing. discussed paced bottle feedings and resources given for her post discharge
[2019-01-29] MEDS: Labetalol 200 MG Tablet PO (10:39)
--- NOTE | 2019-01-29 13:05 | CASEMGMT ---
Social Work Labor and Delivery Unit Patient Address: [facility] [address], [place] [address] Phone number: [phone] Date of Referral/Notification: 01.28.2019 Time of Referral: [phone] Referred By: social work identification Reason for Referral: first time parents, patient/mother of baby readmitted for blood pressure issues and per nursing report the baby was also readmitted after delivery for bilirubin issues. Offer support and resources as indicated. Date of Intervention: 01-29-2019 Time of Intervention: 1300 Informant: Medical record, MOB Yazmin Reed, and father of baby (FOB) Ron Reed. History: FLORA is a 38 year old female who delivered baby boy Dylan Reed on 01.21.2019 at 37 weeks gestation. Baby conceived through IVF. FLORA has history of PCOS. MOB and FOB are . MOB works fulltime for [employer] as a [employer]. 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 FOB works fulltime. After delivery Dylan was reportedly readmitted for bili lights and then after homegoing from Dylan's 2nd stay at the hospital (first being delivery admission), FLORA was then readmitted for blood pressure issues. MOB denies any history of depression or anxiety. There are no reports of substance use issues. No red flags or risk factors were identified prompting a social work consult during delivery admission. Assessment: FLORA reports to feel exhausted right now, but otherwise to be feeling okay. FLORA does not perceive self to be depressed at this point. MOB reports staff have talked to MOB about this topic during this admission and also touched on this during delivery admission. This mortgage underwriter touched on some risk factors, and educated to some things to look for. Educated that father's can also experience depression and anxiety. Provided parents with packet on said topic, included local and online resources should MOB or FOB develop symptoms or concerns at homegoing. Also educated to the nurse visit program through [facility]. At this time a referral is declined but MOB accepted information on said program. MOB thanked this mortgage underwriter for coming in. MOB and FOB report to be looking forward to going home, getting into a new routine with the baby in own home environment. FOB will be off of work until the middle of next week. MOB also identifies having support from family locally. Plan: MOB to discharge home when medically stable. Resources for depression and nurse visit provided to MOB for home going. No further needs requested or indicated. -ROSARIO Mi, DICTATING MACHINE TYPIST
--- NOTE | 2019-01-29 17:55 | NURSING ---
Discharge instructions reviewed with pt. Pt to followup with [facility] on Sunday for BP check and incision check. Pt verbalizes understand and is wheeled off unit with and infant.
== END 2019-01-29 17:55 | disposition home or self-care (01) | DRG 776 ==
LOC: WPOUT 01-28 10:19
PROVIDERS: Admitting Provider Obstetrics & Gynecology; Family Provider Family Medicine Sports Medicine; PCP Family Medicine Sports Medicine; Referring Provider Obstetrics & Gynecology; Visit Provider Obstetrics & Gynecology
DX: O14.15 Severe pre-eclampsia, complicating the puerperium (principal); O99.285 Endocrine, nutritional and metabolic diseases complicating the puerperium; E03.9 Hypothyroidism, unspecified; Z79.899 Other long term (current) drug therapy; O99.215 Obesity complicating the puerperium; E66.9 Obesity, unspecified
CPT/HCPCS: 80053; 85025; J2405

== ENCOUNTER 2021-03-17 10:14 | Day surgery (SDC) | payer OTHER, SELFPAY ==
[2021-03-17] VITALS (7 sets, daily range): BP systolic 143–149; BP diastolic 82–87; PULSE 80–86; RESP 16; TEMP 36.4–36.5; O2SAT 97–100; BMI 51.8
[2021-03-17 10:43] LABS: Internal QC Validated? YES +Cl - CLEAR BKGD; Pregnancy, Urine Negative Negative
[2021-03-17] MEDS: Lidocaine 1% /Epi 1:100 (50ml) 50 ML VIAL (10:54)
[2021-03-17] MEDS: Acetaminophen 500 MG Tablet 1000 MG PO (10:56)
[2021-03-17] MEDS: Ketorolac 30 MG/ML Syringe IV (10:56)
[2021-03-17] MEDS: Lactated Ringers 1,000 ML 15 ML IV (10:58)
--- NOTE | 2021-03-17 11:40 | EMB_PTH ---
PATIENT: LETICIAJUNE KIMBERLY LOC: [facility] [place] U#:[id number] AGE/SX: 40/F ROOM: RE03/17/[address]: Dr. Ernestine Ly MD : [id number] BED: DIS: 03/17/2021 SPEC #: [id number] RECD: 03/17/21 13:16 STATUS: JESUS RECherry #: [id number] LORA: 03/17/21 11:[address]: Ernestine Ly DEPT: SURGICAL PATHOLOGY RECD BY: Sussy Anthony ENTERED: 03/17/21 13:22 SP TYPE: ENDOM BX/C OTHR DR: Dr. Candida Rachel MD Tissues: Endometrium, NOS Procedures: Surgery Specimen Level IV HEADER OPERATION: Hysteroscopy, D & C Symphion with polyp resection PRE-OP DIAGNOSIS: Abnormal uterine bleeding; endometrial polyps TISSUE SUBMITTED: Endometrial curettings and polyp MICROSCOPIC DIAGNOSIS Endometrial curettings and polyp: Mildly disordered proliferative endometrium. Fragments of myometrium. SALINA:james 03/21/2021 MICROSCOPIC DESCRIPTION Slides are reviewed. GROSS DESCRIPTION Received in fixative is one container labeled with the patient's name and designated endometrial curettings and polyp. The specimen consists of multiple irregular fragments of pink-johns soft tissue that in aggregate measure 3 x 2 x 0.2 cm. The specimen is totally submitted in one cassette. / AM:james 03/17/21 TC:5 CPT: 47132
--- NOTE | 2021-03-17 12:11 | PCM.DC ---
Discharge Instructions Diet Discharge Diet: No restrictions Activity May resume sexual activity in: 2 weeks Lifting Restrictions: none Dressing / Incision Call your doctor if your incision/area has: Sudden Increased Bleeding and Foul Smelling Discharge Call your doctor if you observe: Fever of 101 or Higher and Using more than 1 pad per hour (for 2 hrs in a row) Follow Up Care Please Follow Up With: Ernestine Ly MD When: 2-4 weeks or as needed. Call [phone] to make an appointment or with any concerns. Test Results: Test results from this visit will be discussed in further detail at your follow-up appointment, if applicable. Discharge Plan Admission Primary Reason for Your Visit: D&C with polyp resection Attending Provider: Ernestine Ly Primary Care Provider: Candida Rachel Discharge Orders/Prescriptions Prescriptions: No Action levothyroxine 75 MCG tablet 75 mcg PO DAILY RF: 0 multivitamin Capsule 1 cap PO DAILY RF: 0 cholecalciferol (vitamin D3) [Vitamin D3] 50 mcg (2,000 unit) Capsule 50 mcg PO DAILY RF: 0 Referrals / Follow Up: Candida Rachel MD [Primary Care Provider] - Disposition Disposition (needs filled in before D/C Order can be placed): Home, Self Care
--- NOTE | 2021-03-17 12:12 | PCM.OPRPT ---
Problems Associated Problem List Diagnoses (1) Abnormal uterine bleeding (AUB): (2) Endometrial polyp: Report of Operation Date of Procedure: 03/17/21 Pre-Operative Diagnosis: AUB, endometrial polyp Post-Operative Diagnosis: same Surgery/Procedure Performed:: hysteroscopy D&C with polypresection Description of Surgical Findings:: Normal-appearing cervix and vagina, lush endometrial lining. Some polypoid appearing material in the posterior wall Surgeon: Ernestine Ly civil laboratory technician: None Type of Anesthesia: MAC/Supplemental/Local Anesthesiologist: Debbi Maria Special Medications: none Specimen's removed: endometrial curettings and polyp Drains: none Estimated Blood Loss (mL): 10 Fluids Replaced: 700 cc Description of Procedure: The patient was taken to the OR where she was prepped and draped in dorsal lithotomy position. The weighted speculum was placed in the vagina and the anterior lip of the cervix was grasped with a single-tooth tenaculum. A paracervical block was administered with [1% lidocaine with 1-100,000 epinephrine solution]. The cervix was dilated serially with Hegar dilators. The Symphion hysteroscope was placed into the uterine cavity and the above findings were noted. Bilateral tubal ostia [were] identified. The resection device was inserted. A visual D&C was done of the endometrial cavity.. The instruments were removed from the vagina. The specimen was handed off and sent to pathology. All sponge and needle counts were correct. Vaginal sweep was performed by me. The patient was awakened and taken to the recovery room in stable condition. Calculated hysteroscopic fluid deficit was 600 cc of normal saline Grafts/Implants Used: none Procedure Start Time: 12:15 Procedure Stop Time: 12:28 Complications none Admit VTE Documentation VTE Mechan Device Prophylaxis: SCD's VTE Pharm Prophylaxis ordered?: No Reason prophylaxis not ordered:: Procedure Not Indicated
== END 2021-03-17 13:44 | disposition home or self-care (01) ==
LOC: SDC 10:16 → AC 10:18
PROVIDERS: PCP Family Medicine Sports Medicine; Referring Provider Obstetrics & Gynecology; Visit Provider Obstetrics & Gynecology
PROC: 0UB98ZZ Excision of Uterus, Via Natural or Artificial Opening Endoscopic (ICD-10-PCS; CPT 58558; principal; 2021-03-17 11:25)
DX: N84.0 Polyp of corpus uteri (principal); E03.9 Hypothyroidism, unspecified; E28.2 Polycystic ovarian syndrome; Z79.899 Other long term (current) drug therapy
CPT/HCPCS: 00952; 58558; 81025; 88305; J7120; J2405